=== PATIENT | female | born 1950 | race African-American/Black ===

== ENCOUNTER 2018-03-08 13:18 | Inpatient (IN) | payer OTHER, MEDICAID ==
[~2018-03-08] VITALS: Ht 154.9 cm; Wt 52.6 kg
[2018-03-08] MEDS ORDERED: KETOROLAC 30MG/ML VIAL IV STA (15:19)
[2018-03-08] MEDS ORDERED: ONDANSETRON HCL 4MG/2ML INJ IV STA (15:19)
[2018-03-08] MEDS ORDERED: SODIUM CHLORIDE 0.9% 1,000 ML IV ONE (15:19)
[2018-03-08] MEDS ORDERED: MORPHINE SULFATE 10 MG/ML CPJ IV ONE ×2 (15:30→17:45)
[2018-03-08 15:56] LABS: BASOPHILS % 0.6 % (0.0-2.0); EOSINOPHILS % 0.1 % (0.0-5.0); HEMATOCRIT. 40.7 % (36.0-48.0); LYMPHOCYTES % 8.8 % (20.0-50.0); MEAN CORPUSCULAR HEMOGLOBIN 27.9 pg (28.0-32.0); MEAN CORPUSCULAR VOLUME 87.7 fL (81.0-99.0); MEAN PLATELET VOLUME 8.3 fl (7.4-10.4); MONOCYTES % 3.2 % (2.0-8.0); NEUTROPHILS % 87.3 % (40.0-76.0); PLATELET 374 x1000/uL (130-400); RED BLOOD CELL COUNT 4.65 mill/uL (4.2-5.4); RED CELL DISTRIBUTION WIDTH 17.4 % (11.6-14.6)
[2018-03-08 16:01] LABS: CHLORIDE 112 mEq/L (98-107)
[2018-03-08] MEDS ORDERED: METOCLOPRAMIDE HCL 10MG/2ML VIAL IV ONE (17:45)
[2018-03-08] MEDS ORDERED: PIPERACILLIN/TAZ 3.375G PREMIX 50 ML IV ONE (17:45)
[2018-03-08] MEDS ORDERED: LORAZEPAM 0.5MG TABLET PO PRN (19:15)
[2018-03-08] MEDS ORDERED: GUAIFENESIN 200MG/10ML SUGAR FREE UDC PO PRN (19:15)
[2018-03-08] MEDS ORDERED: DOCUSATE SODIUM 100MG CAPSULE PO PRN (19:15)
[2018-03-08] MEDS ORDERED: ONDANSETRON HCL 4MG/2ML INJ IV PRN (19:15)
[2018-03-08] MEDS ORDERED: TRAMADOL 50MG TABLET PO PRN (19:15)
[2018-03-08] MEDS ORDERED: NITROGLYCERIN 0.4MG TABLET SL SL PRN (19:15)
[2018-03-08] MEDS ORDERED: NA PHOS,M-B/NA PHOS,DI-BA ENEMA 118ML PR PRN (19:15)
[2018-03-08] MEDS ORDERED: ACETAMINOPHEN 325MG TABLET PO PRN (19:15)
[2018-03-08] MEDS ORDERED: ZOLPIDEM TARTRATE 5MG TABLET PO PRN (19:15)
[2018-03-08] MEDS: CLONIDINE 0.1MG TABLET PO PRN (19:22)
[2018-03-08 21:24] VITALS: BP 165/71
[2018-03-08 21:45] VITALS: BP 136/68
[2018-03-08] MEDS: METOPROLOL TARTRATE 25MG TABLET PO SCH (22:22)
[2018-03-08] MEDS: LISINOPRIL 20MG TABLET PO SCH (22:23)
[2018-03-08] MEDS: SODIUM CHLORIDE 0.9% 1,000 ML IV SCH (22:23)
[2018-03-08] MEDS: MORPHINE SULFATE 4 MG/ML CPJ (NOT FOR IM USE) IV PRN (23:46)
[2018-03-09] VITALS (7 sets, daily range): BP systolic 136–163; BP diastolic 66–85
[2018-03-09] MEDS: SODIUM CHLORIDE 0.9% 1,000 ML IV SCH ×3 (05:15→16:37)
[2018-03-09] MEDS: PIPERACILLIN/TAZ 3.375G PREMIX 50 ML IV SCH ×3 (05:16→21:19)
[2018-03-09] MEDS: CLONIDINE 0.1MG TABLET PO PRN (06:18)
[2018-03-09] MEDS: MORPHINE SULFATE 4 MG/ML CPJ (NOT FOR IM USE) IV PRN ×2 (06:28→10:43)
[2018-03-09] MEDS: LISINOPRIL 20MG TABLET PO SCH ×2 (08:59→21:09)
[2018-03-09] MEDS: METOPROLOL TARTRATE 25MG TABLET PO SCH ×2 (08:59→21:09)
[2018-03-09] MEDS: PANTOPRAZOLE SODIUM 40 MG/VIAL IV SCH (08:59)
[2018-03-09] MEDS: ENOXAPARIN 40MG/0.4ML SYR SUBCUT SCH (09:00)
[2018-03-09 12:34] LABS: HEMATOCRIT. 36.4 % (36.0-48.0); HEMOGLOBIN. 11.6 g/dL (12.0-16.0); MEAN CORPUSCULAR VOLUME 87.5 fL (81.0-99.0); MEAN PLATELET VOLUME 8.6 fl (7.4-10.4); PLATELET 301 x1000/uL (130-400); RED BLOOD CELL COUNT 4.16 mill/uL (4.2-5.4); RED CELL DISTRIBUTION WIDTH 17.4 % (11.6-14.6)
[2018-03-09 12:36] LABS: CHLORIDE 115 mEq/L (98-107)
[2018-03-09 12:41] LABS: AMYLASE 308 IU/L (25-115)
[2018-03-09 13:33] LABS: PLATELET ESTIMATE NORMAL
[2018-03-09] MEDS: KETOROLAC 15MG/ML VIAL IV PRN (16:37)
[2018-03-09] MEDS ORDERED: MORPHINE SULFATE 10 MG/ML CPJ IV PRN (20:15)
[2018-03-09] MEDS: MAGNESIUM/ALUMINUM HYDROXIDE/SIMETHICONE 30ML UDC PO PRN (21:09)
[2018-03-10] VITALS: BP 130/68
[2018-03-10] MEDS: KETOROLAC 15MG/ML VIAL IV PRN (01:22)
[2018-03-10 04:00] VITALS: BP 155/79
[2018-03-10] MEDS: PIPERACILLIN/TAZ 3.375G PREMIX 50 ML IV SCH ×3 (04:28→19:34)
[2018-03-10] MEDS: SODIUM CHLORIDE 0.9% 1,000 ML IV SCH (04:28)
[2018-03-10] MEDS: MAGNESIUM/ALUMINUM HYDROXIDE/SIMETHICONE 30ML UDC PO PRN (04:28)
[2018-03-10] MEDS: MORPHINE SULFATE 4 MG/ML CPJ (NOT FOR IM USE) IV PRN ×4 (04:42→23:35)
[2018-03-10 08:00] VITALS: BP 138/67
[2018-03-10] MEDS: PANTOPRAZOLE SODIUM 40 MG/VIAL IV SCH (09:08)
[2018-03-10] MEDS: ENOXAPARIN 40MG/0.4ML SYR SUBCUT SCH (09:09)
[2018-03-10] MEDS: METOPROLOL TARTRATE 25MG TABLET PO SCH ×2 (09:09→20:26)
[2018-03-10] MEDS: LISINOPRIL 20MG TABLET PO SCH ×2 (09:10→20:26)
[2018-03-10 12:00] VITALS: BP 131/65
[2018-03-10] MEDS ORDERED: HYDROCODONE/ACETAMINOPHEN 10/325MG TABLET PO PRN (14:00)
[2018-03-10 16:00] VITALS: BP 116/78
[2018-03-10 20:00] VITALS: BP 169/78
[2018-03-11] VITALS: BP 119/58
[2018-03-11] MEDS: IPRATROPIUM/ALBUTEROL 0.5-3(2.5)MG/3ML NEB HHN SCH ×3 (00:05→08:41)
[2018-03-11 04:00] VITALS: BP 121/60
[2018-03-11] MEDS: PIPERACILLIN/TAZ 3.375G PREMIX 50 ML IV SCH ×2 (04:41→12:00)
[2018-03-11] MEDS: MORPHINE SULFATE 4 MG/ML CPJ (NOT FOR IM USE) IV PRN ×2 (05:08→11:20)
[2018-03-11 08:00] VITALS: BP 149/56
[2018-03-11] MEDS: PANTOPRAZOLE SODIUM 40 MG/VIAL IV SCH (08:22)
[2018-03-11] MEDS: LISINOPRIL 20MG TABLET PO SCH (08:22)
[2018-03-11] MEDS: ENOXAPARIN 40MG/0.4ML SYR SUBCUT SCH (08:22)
[2018-03-11] MEDS: METOPROLOL TARTRATE 25MG TABLET PO SCH (08:22)
[2018-03-11 11:06] VITALS: BP 132/62
[2018-03-11 12:00] VITALS: BP 139/58
== END 2018-03-11 12:56 | disposition home or self-care (01) | DRG 871 ==
LOC: ER 13:18 → EDBEDREQ 15:25 → EDBEDREQSVC 18:19 → EDBEDREQ 18:19 → EDBEDREQTM 18:19 → ENRESERV 18:46 → SUPCPDRO 19:02 → 6EST 21:11
PROVIDERS: ADMIT Internal Medicine; ATTEND Internal Medicine
DX: A41.9 Sepsis, unspecified organism (principal); K85.90 Acute pancreatitis without necrosis or infection, unspecified; K83.09 Other cholangitis; K80.20 Calculus of gallbladder without cholecystitis without obstruction; I10 Essential (primary) hypertension; M19.90 Unspecified osteoarthritis, unspecified site; F12.10 Cannabis abuse, uncomplicated; F10.10 Alcohol abuse, uncomplicated; Z96.652 Presence of left artificial knee joint; Z86.73 Personal history of transient ischemic attack (TIA), and cerebral infarction without residual deficits; Z98.84 Bariatric surgery status
CPT/HCPCS: 36415; 71045; 74176; 74181; 76700; 80061; 80076; 82150; 83036; 83605; 83880; 84484; 93005; 93970; 94640; 96361; 96365; 96375; 96376; 97166; 99285; C1893; C9113; G0482; J1650; J1885; J2270; J2405; J2543; J2765; J7030; J7040; J7620

== ENCOUNTER 2018-04-23 11:55 | Emergency (ER) | payer OTHER, MEDICAID ==
[~2018-04-23] VITALS: Ht 152.4 cm; Wt 55.0 kg
[2018-04-23] MEDS ORDERED: TETANUS, DIPHTHERIA, PERTUSSIS VAC/PF 0.5ML (>7YR OLD) IM ONE (12:30)
[2018-04-23] MEDS ORDERED: LIDOCAINE HCL 1% 20ML VIAL (Pyxis) INJ INFIL ONE (12:30)
[2018-04-23 14:49] VITALS: BP 110/89
== END 2018-04-23 14:55 | disposition home or self-care (01) ==
LOC: ER 11:55
DX: S01.01XA Laceration without foreign body of scalp, initial encounter (principal); W10.8XXA Fall (on) (from) other stairs and steps, initial encounter; Y93.89 Activity, other specified; Y92.018 Other place in single-family (private) house as the place of occurrence of the external cause; I10 Essential (primary) hypertension; Z23 Encounter for immunization; F12.90 Cannabis use, unspecified, uncomplicated; Z86.73 Personal history of transient ischemic attack (TIA), and cerebral infarction without residual deficits
CPT/HCPCS: 12001; 70450; 72125; 90471; 90715; 99284; J3490

== ENCOUNTER 2018-08-03 08:36 | Inpatient (IN) | payer OTHER, MEDICAID ==
[2018-08-03] VITALS (28 sets, daily range): BP systolic 73–139; BP diastolic 52–104
[~2018-08-03] VITALS: Ht 157.5 cm; Wt 59.9 kg
[2018-08-03 09:15] LABS: HEMATOCRIT. 45.3 % (36.0-48.0); HEMOGLOBIN. 14.8 g/dL (12.0-16.0); MEAN CORPUSCULAR HEMOGLOBIN 28.6 pg (28.0-32.0); MEAN CORPUSCULAR VOLUME 87.3 fL (81.0-99.0); MEAN PLATELET VOLUME 8.7 fl (7.4-10.4); PLATELET 302 x1000/uL (130-400); RED BLOOD CELL COUNT 5.18 mill/uL (4.2-5.4); RED CELL DISTRIBUTION WIDTH 16.6 % (11.6-14.6)
[2018-08-03 09:18] LABS: INR 1.1; PROTHROMBIN TIME 11.6 sec (9.6-11.0)
[2018-08-03 09:20] LABS: CHLORIDE 105 mEq/L (98-107)
[2018-08-03 09:54] LABS: PLATELET ESTIMATE NORMAL
[2018-08-03] MEDS ORDERED: ONDANSETRON HCL 4MG/2ML INJ IV ONE (10:30)
[2018-08-03] MEDS ORDERED: MORPHINE SULFATE 4 MG/ML CPJ (NOT FOR IM USE) IV ONE ×2 (10:30→13:00)
[2018-08-03 10:57] LABS: CHLORIDE 105 mEq/L (98-107)
[2018-08-03 10:58] LABS: INR 1.1; PROTHROMBIN TIME 11.6 sec (9.6-11.0)
[2018-08-03] MEDS ORDERED: VANCOMYCIN 1 G PREMIX 200 ML IV ONE (11:15)
[2018-08-03] MEDS ORDERED: SODIUM CHLORIDE 0.9% 1000ML BAG (SEPSIS BOLUS) IV ONE (11:15)
[2018-08-03] MEDS ORDERED: PIPERACILLIN/TAZ 3.375G PREMIX 50 ML IV ONE (11:15)
[2018-08-03] MEDS ORDERED: DIATR MEGLU/DIATRIZOATE SOLN 30ML ONE (12:02)
[2018-08-03] MEDS ORDERED: BUPIVACAINE HCL 0.5% (5MG/ML) 50ML ONE (13:16)
[2018-08-03] MEDS ORDERED: PROPOFOL 200MG/20ML VIAL IV ONE (13:35)
[2018-08-03] MEDS ORDERED: NEOSTIGMINE METHYLSULFATE 1MG/ML 10 ML VIAL ONE (13:35)
[2018-08-03] MEDS ORDERED: FENTANYL CITRATE/PF 50MCG/ML 2ML VIAL ONE (13:35)
[2018-08-03] MEDS ORDERED: ROCURONIUM BROMIDE 10MG/ML VIAL 5ML IV ONE (13:35)
[2018-08-03] MEDS ORDERED: MIDAZOLAM HCL 2 MG/2 ML VIAL ONE ×2 (13:36→15:28)
[2018-08-03] MEDS ORDERED: GLYCOPYRROLATE 0.2 MG/ML 2ML VIAL ONE (13:36)
[2018-08-03] MEDS ORDERED: DEXAMETHASONE 4MG/ML 1ML VIAL ONE (15:06)
[2018-08-03] MEDS ORDERED: LABETALOL 5MG/ML SYR 20 MG/4 ML SYRINGE IV PRN (15:15)
[2018-08-03] MEDS ORDERED: HYDROMORPHONE HCL/PF 2MG/ML CPJ IV PRN (15:15)
[2018-08-03] MEDS ORDERED: ONDANSETRON HCL 4MG/2ML INJ IV PRN ×2 (15:15→15:30)
[2018-08-03] MEDS ORDERED: MEPERIDINE HCL/PF 25MG/ML CPJ IV PRN (15:15)
[2018-08-03] MEDS ORDERED: DEXT 5%/0.45% NACL KCL 20MEQ/L 1,000 ML IV SCH (15:16)
[2018-08-03] MEDS ORDERED: LORAZEPAM 2MG/ML CPJ IV PRN (15:30)
[2018-08-03] MEDS ORDERED: ACETAMINOPHEN 650MG SUPP PR PRN ×2 (15:30)
[2018-08-03] MEDS ORDERED: LEVOFLOXACIN 500MG PREMIX 100 ML IV SCH (15:30)
[2018-08-03] MEDS: DEXT 5%/0.45% NACL 1000ML 1,000 ML IV SCH ×2 (16:34→23:26)
[2018-08-03] MEDS: PROPOFOL 10MG/ML 100ML 100 ML IV PRN ×2 (16:35→21:28)
[2018-08-03 16:42] LABS: BG BASE EXCESS -10.5 mmol/L (-2.0-2.0); BG CARBOXYHEMOGLOBIN 0.5 % (0.5-1.5); BG DEOXYHEMOGLOBIN 0.9 % (0.0-5.0); BG FRACTION INSPIRED OXYGEN 100; BG HCO3 ACT 15.2 mmol/L (22.0-26.0); BG METHEMOGLOBIN 0.3 % (0.0-1.5); BG OXYGEN SATURATION 99.1 % (92.0-98.5); BG OXYHEMOGLOBIN 98.3 % (94.0-97.0); BG PCO2 33.5 mmHg (35.0-45.0); BG PH 7.275 (7.350-7.450); BG PO2 408.2 mmHg (75.0-100.0); BG SAMPLE SITE RIGHT BRACHIAL; BG TIDAL VOLUME(mL) 425 mL; BG TOTAL HEMOGLOBIN 12.7 g/dL (12.0-18.0); BG VENT MODE VENT - A/C; BG VENT RATE 10 set
[2018-08-03] MEDS ORDERED: LEVOFLOXACIN 500MG PREMIX 100 ML IV NR (17:00)
[2018-08-03] MEDS ORDERED: PHENYLEPHRINE 10 MG in DEXT 5% WATER 249 ML IV PRN (17:00)
[2018-08-03] MEDS ORDERED: SODIUM BICARBONATE 8.4% 1 MEQ/ML 50ML SYR IV NR (17:00)
[2018-08-03 17:53] LABS: CLARITY URINE CLEAR (CLEAR); COLOR URINE YELLOW (YELLOW); KETONES URINE NEGATIVE (NEGATIVE); LEUKOCYTE ESTERASE URINE NEGATIVE (NEGATIVE); NITRITE URINE NEGATIVE (NEGATIVE); OCCULT BLOOD URINE 1+ (NEGATIVE); PH URINE 5.5 (4.5-8.0); PROTEIN URINE 2+ (NEGATIVE); SPECIFIC GRAVITY URINE 1.015 (1.005-1.030)
[2018-08-03] MEDS: FENTANYL CITRATE/PF 500 MCG in SODIUM CHLORIDE 0.9% 40 ML IV PRN (17:58)
[2018-08-03] MEDS: METRONIDAZOLE 500 MG PREMIX 100 ML IV SCH (19:56)
[2018-08-03] MEDS: IPRATROPIUM BROMIDE (0.02%) 0.5MG/2.5ML NEB HHN SCH (20:44)
[2018-08-03] MEDS ORDERED: FAMOTIDINE 20MG/2ML VIAL IV SCH (21:00)
[2018-08-03] MEDS: FAMOTIDINE 20MG/2ML VIAL IV SCH (21:43)
[2018-08-03] MEDS ORDERED: LACTATED RINGERS 1,000 ML IV ONE (22:15)
[2018-08-03] MEDS ORDERED: LACTATED RINGERS 1,000 ML IV NR (23:00)
[2018-08-04] VITALS (103 sets, daily range): BP systolic 56–118; BP diastolic 15–64
[2018-08-04] MEDS: FENTANYL CITRATE/PF 500 MCG in SODIUM CHLORIDE 0.9% 40 ML IV PRN ×2 (01:03→12:47)
[2018-08-04] MEDS: IPRATROPIUM BROMIDE (0.02%) 0.5MG/2.5ML NEB HHN SCH ×4 (02:15→20:29)
[2018-08-04] MEDS: METRONIDAZOLE 500 MG PREMIX 100 ML IV SCH ×3 (03:12→17:54)
[2018-08-04] MEDS: PROPOFOL 10MG/ML 100ML 100 ML IV PRN ×3 (03:39→20:26)
[2018-08-04 06:05] LABS: HEMATOCRIT. 31.2 % (36.0-48.0); HEMOGLOBIN. 10.4 g/dL (12.0-16.0); MEAN CORPUSCULAR HEMOGLOBIN 28.5 pg (28.0-32.0); MEAN CORPUSCULAR VOLUME 85.8 fL (81.0-99.0); MEAN PLATELET VOLUME 9.2 fl (7.4-10.4); PLATELET 150 x1000/uL (130-400); RED BLOOD CELL COUNT 3.64 mill/uL (4.2-5.4); RED CELL DISTRIBUTION WIDTH 16.6 % (11.6-14.6)
[2018-08-04] MEDS: DEXT 5%/0.45% NACL 1000ML 1,000 ML IV SCH ×4 (06:06→23:42)
[2018-08-04 06:35] LABS: CHLORIDE 111 mEq/L (98-107)
[2018-08-04 07:36] LABS: BG BASE EXCESS -4.9 mmol/L (-2.0-2.0); BG CARBOXYHEMOGLOBIN 0.4 % (0.5-1.5); BG DEOXYHEMOGLOBIN 1.8 % (0.0-5.0); BG METHEMOGLOBIN 0.3 % (0.0-1.5); BG OXYGEN SATURATION 98.2 % (92.0-98.5); BG OXYHEMOGLOBIN 97.5 % (94.0-97.0); BG PCO2 26.9 mmHg (35.0-45.0); BG PH 7.444 (7.350-7.450); BG PO2 148.1 mmHg (75.0-100.0); BG SAMPLE SITE RIGHT BRACHIAL; BG TIDAL VOLUME(mL) 500 mL; BG TOTAL HEMOGLOBIN 10.7 g/dL (12.0-18.0); BG VENT MODE VENT - A/C; BG VENT RATE 18 set
[2018-08-04] MEDS: PHENYLEPHRINE 40 MG in DEXTROSE 5% WATER 250 ML IV PRN ×3 (07:53→23:55)
[2018-08-04 14:32] LABS: PLATELET ESTIMATE NORMAL
[2018-08-04] MEDS ORDERED: LEVOFLOXACIN 250MG PREMIX 50 ML IV SCH (17:00)
[2018-08-04] MEDS ORDERED: FENTANYL CITRATE/PF 1,000 MCG in SODIUM CHLORIDE 0.9% 80 ML IV PRN (19:23)
[2018-08-04] MEDS: FAMOTIDINE 20MG/2ML VIAL IV SCH (22:10)
[2018-08-05] VITALS (98 sets, daily range): BP systolic 75–139; BP diastolic 49–94
[2018-08-05] MEDS: IPRATROPIUM BROMIDE (0.02%) 0.5MG/2.5ML NEB HHN SCH ×4 (02:28→20:25)
[2018-08-05] MEDS: METRONIDAZOLE 500 MG PREMIX 100 ML IV SCH ×3 (03:09→18:21)
[2018-08-05] MEDS: PHENYLEPHRINE 40 MG in DEXTROSE 5% WATER 250 ML IV PRN (03:18)
[2018-08-05] MEDS: PHENYLEPHRINE 80 MG in DEXT 5% WATER 492 ML IV PRN ×2 (07:46→21:04)
[2018-08-05] MEDS: DEXT 5%/0.45% NACL 1000ML 1,000 ML IV SCH (07:46)
[2018-08-05] MEDS: PROPOFOL 10MG/ML 100ML 100 ML IV PRN (07:48)
[2018-08-05 08:50] LABS: HEMATOCRIT. 29.6 % (36.0-48.0); MEAN CORPUSCULAR HEMOGLOBIN 29.1 pg (28.0-32.0); MEAN CORPUSCULAR VOLUME 85.8 fL (81.0-99.0); MEAN PLATELET VOLUME 9.2 fl (7.4-10.4); PLATELET 106 x1000/uL (130-400); RED BLOOD CELL COUNT 3.45 mill/uL (4.2-5.4); RED CELL DISTRIBUTION WIDTH 16.6 % (11.6-14.6)
[2018-08-05 08:59] LABS: CHLORIDE 109 mEq/L (98-107)
[2018-08-05 10:01] LABS: PLATELET ESTIMATE SLIGHTLY DECREASED
[2018-08-05 10:02] LABS: BG BASE EXCESS -5.6 mmol/L (-2.0-2.0); BG CARBOXYHEMOGLOBIN 0.1 % (0.5-1.5); BG DEOXYHEMOGLOBIN 2.1 % (0.0-5.0); BG FRACTION INSPIRED OXYGEN 30; BG HCO3 ACT 17.7 mmol/L (22.0-26.0); BG METHEMOGLOBIN 0.3 % (0.0-1.5); BG OXYGEN SATURATION 97.9 % (92.0-98.5); BG OXYHEMOGLOBIN 97.5 % (94.0-97.0); BG PCO2 27.8 mmHg (35.0-45.0); BG PH 7.423 (7.350-7.450); BG SAMPLE SITE RIGHT BRACHIAL; BG TIDAL VOLUME(mL) 500 mL; BG TOTAL HEMOGLOBIN 10.1 g/dL (12.0-18.0); BG VENT MODE VENT - A/C; BG VENT RATE 18 set
[2018-08-05] MEDS ORDERED: POTASSIUM CHLORIDE INJ 40 MEQ in DEXT 5% WATER 500 ML IV SCH (10:30)
[2018-08-05] MEDS: DEXT 5%/0.9% NACL KCL 20MEQ/L 1,000 ML IV SCH ×2 (11:22→18:22)
[2018-08-05 12:07] LABS: BG CARBOXYHEMOGLOBIN 0.3 % (0.5-1.5); BG DEOXYHEMOGLOBIN 3.1 % (0.0-5.0); BG FRACTION INSPIRED OXYGEN 30; BG HCO3 ACT 20.6 mmol/L (22.0-26.0); BG METHEMOGLOBIN 0.3 % (0.0-1.5); BG OXYGEN SATURATION 96.9 % (92.0-98.5); BG OXYHEMOGLOBIN 96.3 % (94.0-97.0); BG PCO2 35.7 mmHg (35.0-45.0); BG PH 7.379 (7.350-7.450); BG PO2 106.3 mmHg (75.0-100.0); BG PRESSURE SUPPORT 8; BG SAMPLE SITE RIGHT BRACHIAL; BG TOTAL HEMOGLOBIN 10.7 g/dL (12.0-18.0); BG VENT MODE VENT - CPAP
[2018-08-05] MEDS: MORPHINE SULFATE 2 MG/ML CPJ (NOT FOR IM USE) IV PRN ×2 (12:57→17:44)
[2018-08-05] MEDS: FAMOTIDINE 20MG/2ML VIAL IV SCH (21:03)
[2018-08-05] MEDS: LEVOFLOXACIN 250MG PREMIX 50 ML IV SCH (21:03)
[2018-08-06] VITALS (64 sets, daily range): BP systolic 101–145; BP diastolic 51–96
[2018-08-06] MEDS: MORPHINE SULFATE 2 MG/ML CPJ (NOT FOR IM USE) IV PRN ×4 (00:04→18:16)
[2018-08-06] MEDS: IPRATROPIUM BROMIDE (0.02%) 0.5MG/2.5ML NEB HHN SCH ×5 (02:03→20:53)
[2018-08-06] MEDS: METRONIDAZOLE 500 MG PREMIX 100 ML IV SCH ×3 (02:08→18:57)
[2018-08-06] MEDS: DEXT 5%/0.9% NACL KCL 20MEQ/L 1,000 ML IV SCH ×3 (02:58→18:30)
[2018-08-06 06:07] LABS: HEMOGLOBIN. 9.8 g/dL (12.0-16.0); MEAN CORPUSCULAR HEMOGLOBIN 28.2 pg (28.0-32.0); MEAN CORPUSCULAR VOLUME 86.6 fL (81.0-99.0); MEAN PLATELET VOLUME 8.8 fl (7.4-10.4); PLATELET 79 x1000/uL (130-400); RED BLOOD CELL COUNT 3.47 mill/uL (4.2-5.4); RED CELL DISTRIBUTION WIDTH 16.5 % (11.6-14.6)
[2018-08-06 06:13] LABS: CHLORIDE 116 mEq/L (98-107)
[2018-08-06 08:19] LABS: PLATELET ESTIMATE DECREASED
[2018-08-06] MEDS ORDERED: NON FORMULARY PATIENT HOME MED XX SCH (09:30)
[2018-08-06] MEDS: PANTOPRAZOLE SODIUM 40 MG/VIAL IV SCH (11:48)
[2018-08-06] MEDS: LEVOFLOXACIN 250MG PREMIX 50 ML IV SCH (19:49)
[2018-08-07] VITALS (24 sets, daily range): BP systolic 116–147; BP diastolic 65–79
[2018-08-07] MEDS: MORPHINE SULFATE 2 MG/ML CPJ (NOT FOR IM USE) IV PRN ×5 (00:16→18:36)
[2018-08-07] MEDS: IPRATROPIUM BROMIDE (0.02%) 0.5MG/2.5ML NEB HHN SCH ×4 (01:45→20:18)
[2018-08-07] MEDS: DEXT 5%/0.9% NACL KCL 20MEQ/L 1,000 ML IV SCH ×3 (02:41→16:58)
[2018-08-07] MEDS: METRONIDAZOLE 500 MG PREMIX 100 ML IV SCH ×3 (02:42→16:58)
[2018-08-07] MEDS: PANTOPRAZOLE SODIUM 40 MG/VIAL IV SCH (08:31)
[2018-08-07] MEDS: IPRATROPIUM/ALBUTEROL 0.5-3(2.5)MG/3ML NEB INH PRN (08:48)
[2018-08-07] MEDS: LEVOFLOXACIN 250MG PREMIX 50 ML IV SCH (19:52)
[2018-08-07] MEDS: ONDANSETRON HCL 4MG/2ML INJ IV PRN (21:06)
[2018-08-07] MEDS: LORAZEPAM 2MG/ML CPJ IV PRN (21:06)
[2018-08-08] VITALS (25 sets, daily range): BP systolic 137–177; BP diastolic 66–111
[2018-08-08] MEDS: MORPHINE SULFATE 2 MG/ML CPJ (NOT FOR IM USE) IV PRN ×3 (01:38→10:25)
[2018-08-08] MEDS: DEXT 5%/0.9% NACL KCL 20MEQ/L 1,000 ML IV SCH ×3 (01:45→23:42)
[2018-08-08] MEDS: ONDANSETRON HCL 4MG/2ML INJ IV PRN ×2 (01:45→23:01)
[2018-08-08] MEDS: IPRATROPIUM BROMIDE (0.02%) 0.5MG/2.5ML NEB HHN SCH ×4 (01:53→20:16)
[2018-08-08] MEDS: METRONIDAZOLE 500 MG PREMIX 100 ML IV SCH ×3 (03:17→18:59)
[2018-08-08 05:13] LABS: HEMATOCRIT. 24.4 % (36.0-48.0); HEMOGLOBIN. 8.2 g/dL (12.0-16.0); MEAN CORPUSCULAR HEMOGLOBIN 28.4 pg (28.0-32.0); MEAN CORPUSCULAR VOLUME 84.7 fL (81.0-99.0); MEAN PLATELET VOLUME 8.9 fl (7.4-10.4); PLATELET 72 x1000/uL (130-400); RED BLOOD CELL COUNT 2.88 mill/uL (4.2-5.4); RED CELL DISTRIBUTION WIDTH 16.7 % (11.6-14.6)
[2018-08-08 05:32] LABS: CHLORIDE 122 mEq/L (98-107)
[2018-08-08] MEDS: PANTOPRAZOLE SODIUM 40 MG/VIAL IV SCH (08:29)
[2018-08-08] MEDS: MORPHINE SULFATE 4 MG/ML CPJ (NOT FOR IM USE) IV PRN ×4 (08:52→22:57)
[2018-08-08] MEDS ORDERED: CLONIDINE HCL 0.1MG/24HR PATCH TD ONE (12:15)
[2018-08-08] MEDS ORDERED: HYDRALAZINE 20MG/ML VIAL IV PRN (12:15)
[2018-08-08] MEDS ORDERED: CLONIDINE HCL 0.1MG/24HR PATCH TD SCH (13:00)
[2018-08-08 14:09] LABS: PLATELET ESTIMATE DECREASED
[2018-08-08] MEDS: LEVOFLOXACIN 250MG PREMIX 50 ML IV SCH (20:24)
[2018-08-08] MEDS: LORAZEPAM 2MG/ML CPJ IV PRN (20:58)
[2018-08-09] VITALS (18 sets, daily range): BP systolic 133–174; BP diastolic 58–116
[2018-08-09] MEDS: IPRATROPIUM BROMIDE (0.02%) 0.5MG/2.5ML NEB HHN SCH ×4 (02:05→20:21)
[2018-08-09] MEDS: METRONIDAZOLE 500 MG PREMIX 100 ML IV SCH ×3 (03:24→21:43)
[2018-08-09] MEDS: MORPHINE SULFATE 4 MG/ML CPJ (NOT FOR IM USE) IV PRN ×3 (05:51→20:08)
[2018-08-09] MEDS: ONDANSETRON HCL 4MG/2ML INJ IV PRN ×2 (05:56→11:24)
[2018-08-09] MEDS: PANTOPRAZOLE SODIUM 40 MG/VIAL IV SCH (09:47)
[2018-08-09] MEDS: DEXT 5%/0.9% NACL KCL 20MEQ/L 1,000 ML IV SCH (17:32)
[2018-08-09] MEDS: LEVOFLOXACIN 250MG PREMIX 50 ML IV SCH (20:08)
[2018-08-09] MEDS: LORAZEPAM 2MG/ML CPJ IV PRN (23:26)
[2018-08-10] VITALS (15 sets, daily range): BP systolic 137–166; BP diastolic 69–123
[2018-08-10] MEDS: IPRATROPIUM BROMIDE (0.02%) 0.5MG/2.5ML NEB HHN SCH ×4 (01:58→20:26)
[2018-08-10] MEDS: METRONIDAZOLE 500 MG PREMIX 100 ML IV SCH ×3 (02:03→18:34)
[2018-08-10] MEDS: MORPHINE SULFATE 4 MG/ML CPJ (NOT FOR IM USE) IV PRN ×2 (02:04→08:47)
[2018-08-10] MEDS: PANTOPRAZOLE SODIUM 40 MG/VIAL IV SCH (08:47)
[2018-08-10] MEDS ORDERED: DIATR MEGLU/DIATRIZOATE SOLN 120ML ONE (11:04)
[2018-08-10] MEDS: MORPHINE SULFATE 2 MG/ML CPJ (NOT FOR IM USE) IV PRN (17:00)
[2018-08-10] MEDS: LEVOFLOXACIN 250MG PREMIX 50 ML IV SCH (19:52)
[2018-08-10] MEDS: LORAZEPAM 2MG/ML CPJ IV PRN (20:31)
[2018-08-11] VITALS (12 sets, daily range): BP systolic 137–165; BP diastolic 69–95
[2018-08-11] MEDS: MORPHINE SULFATE 2 MG/ML CPJ (NOT FOR IM USE) IV PRN ×3 (00:03→09:09)
[2018-08-11] MEDS: IPRATROPIUM BROMIDE (0.02%) 0.5MG/2.5ML NEB HHN SCH ×3 (01:36→14:03)
[2018-08-11] MEDS: PANTOPRAZOLE SODIUM 40 MG/VIAL IV SCH (08:37)
[2018-08-11] MEDS ORDERED: TRAMADOL 50MG TABLET PO PRN (09:45)
[2018-08-11] MEDS ORDERED: HYDROCODONE/ACETAMINOPHEN 5/325MG TABLET PO PRN (13:00)
[2018-08-11] MEDS: HYDROCODONE/ACETAMINOPHEN 5/325MG TABLET PO PRN ×2 (13:24→20:19)
[2018-08-11] MEDS: IPRATROPIUM/ALBUTEROL 0.5-3(2.5)MG/3ML NEB INH PRN (20:29)
[2018-08-11] MEDS: AMLODIPINE 10MG TABLET PO SCH (21:29)
[2018-08-12] VITALS (12 sets, daily range): BP systolic 115–164; BP diastolic 65–112
[2018-08-12] MEDS: HYDROCODONE/ACETAMINOPHEN 5/325MG TABLET PO PRN ×4 (00:44→15:16)
[2018-08-12] MEDS: IPRATROPIUM BROMIDE (0.02%) 0.5MG/2.5ML NEB HHN SCH ×4 (01:10→20:18)
[2018-08-12] MEDS: PANTOPRAZOLE SODIUM 40 MG/VIAL IV SCH (09:08)
[2018-08-12] MEDS: AMLODIPINE 10MG TABLET PO SCH (09:08)
[2018-08-13] VITALS (7 sets, daily range): BP systolic 144–156; BP diastolic 63–84
[2018-08-13] MEDS: HYDROCODONE/ACETAMINOPHEN 5/325MG TABLET PO PRN ×3 (00:29→10:39)
[2018-08-13] MEDS: IPRATROPIUM BROMIDE (0.02%) 0.5MG/2.5ML NEB HHN SCH ×2 (02:55→07:51)
[2018-08-13] MEDS: PANTOPRAZOLE SODIUM 40 MG/VIAL IV SCH (09:09)
[2018-08-13] MEDS: AMLODIPINE 10MG TABLET PO SCH (09:09)
== END 2018-08-13 11:02 | disposition home or self-care (01) | DRG 853 ==
LOC: ER 08:36 → CVICU 12:40 → EDBEDREQTM 12:55 → EDBEDREQ 12:55 → SUPCPDRO 15:17 → 5EST 08-09 08:35
PROVIDERS: ADMIT Internal Medicine; ATTEND Internal Medicine
PROC: 0DU907Z Supplement Duodenum with Autologous Tissue Substitute, Open Approach (ICD-10-PCS; principal; 2018-08-03)
PROC: 06HY33Z Insertion of Infusion Device into Lower Vein, Percutaneous Approach (ICD-10-PCS; 2018-08-03)
DX: A41.51 Sepsis due to Escherichia coli [E. coli] (principal); N17.0 Acute kidney failure with tubular necrosis; K25.5 Chronic or unspecified gastric ulcer with perforation; K26.5 Chronic or unspecified duodenal ulcer with perforation; J96.90 Respiratory failure, unspecified, unspecified whether with hypoxia or hypercapnia; K65.9 Peritonitis, unspecified; E44.0 Moderate protein-calorie malnutrition; R65.20 Severe sepsis without septic shock; E78.5 Hyperlipidemia, unspecified; G89.29 Other chronic pain; M19.90 Unspecified osteoarthritis, unspecified site; M54.9 Dorsalgia, unspecified; I95.9 Hypotension, unspecified; I10 Essential (primary) hypertension; Z86.73 Personal history of transient ischemic attack (TIA), and cerebral infarction without residual deficits; Z98.84 Bariatric surgery status; Z79.899 Other long term (current) drug therapy; Z78.1 Physical restraint status
CPT/HCPCS: 36415; 36600; 71045; 74176; 74246; 80048; 80061; 82375; 82805; 83036; 83605; 84145; 84478; 84484; 87070; 87075; 87077; 87186; 93005; 93970; 94002; 94003; 94640; 96365; 96368; 96375; 97116; 97162; 97166; 97530; 99291; A6261; C1758; C9113; J0360; J1100; J1956; J2060; J2250; J2270; J2370; J2405; J2543; J2704; J2710; J3010; J3370; J3480; J3490; J7030; J7050; J7060; J7620; Q9963